=== PATIENT | male | born 1995 | race Two or more races ===

== ENCOUNTER 2016-04-04 05:47 | Emergency (ER) | payer OTHER ==
[2016-04-04 06:00] VITALS: RESP 18
--- NOTE | 2016-04-04 06:03 | EDPHY ---
H & P Stated Complaint: PAIN BEHIND LEFT BOTTOM TEETH IN BACK OF MOUTH, START 6PM HPI/ROS: HPI CHIEF COMPLAINT: Dental pain times 12 hours HISTORY OF PRESENT ILLNESS: This patient very pleasant 20-year-old male no significant medical or surgical history presents emergency room at 6 o'clock in the morning with left lower posterior dental pain. Patient tells me that the past 12 hours he developed this pain achiness on the left lower jaw line posterior aspect behind his last molar. Denies ever having pain like this before denies trouble swallowing denies fever nausea vomiting cough. He does smoke half pack per day Past Medical History: no significant medical history Past Surgical History: No significant surgical history Social History: [employer] student, from [employer], smokes tobacco half pack per day Family History: noncontributory ROS REVIEW OF SYSTEMS: A comprehensive 10 point review of systems is otherwise negative aside from elements mentioned in the history of present illness. Exam Constitutional triage nursing summary reviewed, vital signs reviewed, awake/ alert. Eyes normal conjunctivae and sclera, EOMI, PERRLA. HENT oropharynx: Normal exam, posterior pharynx is normal, he does have impacted lower wisdom teeth on both sides worse on the left and right where his pain is I do not appreciate gumline abscess I do not appreciate David's, nontender to palpation, no evidence of significant infection specifically no abscess, uvula midline, soft palate normal, no lesions normal inspection, atraumatic, moist mucus membranes, no epistaxis, neck supple/ no meningismus, no raccoon eyes. Respiratory clear to auscultation bilaterally, normal breath sounds, no respiratory distress, no wheezing. Cardiovascular rate normal, regular rhythm, no murmur, no edema, distal pulses normal. Gastrointestinal soft, non-tender, no rebound, no guarding, normal bowel sounds, no distension, no pulsatile mass. Genitourinary no CVA tenderness. Musculoskeletal no midline vertebral tenderness, full range of motion, no calf swelling, no tenderness of extremities, no meningismus, good pulses, neurovascularly intact. Skin pink, warm, & dry, no rash, skin atraumatic. Neurologic awake, alert and oriented x 3, AAOx3, moves all 4 extremities equally, motor intact, sensory intact, CN II-XII intact, normal cerebellar, normal vision, normal speech. Psychiatric normal mood/affect. Heme/Lymph/Immune no lymphadenopathy. Differential Diagnosis: includes but is not limited to in a particular, impacted wisdom tooth, apical abscess, gumline abscess, dental decay, cavity, Medical Decision Making: this patient be given Pen-VK in case there is infection underneath his tooth, ibuprofen for pain control he has an impacted wisdom to the left side that may be causing his pain. Will refer him to Dentistry. He understands if he develops any worsening pain swelling, fever, questions concerns return to the emergency room. Source: Patient - Personal History Current Tetanus/Diphtheria Vaccine: Yes - Medical/Surgical History Hx Asthma: No Hx Chronic Respiratory Disease: No Hx Diabetes: No Hx Cardiac Disease: No Hx Renal Disease: No Hx Cirrhosis: No Hx Alcoholism: No Hx HIV/AIDS: No Hx Splenectomy or Spleen Trauma: No Other PMH: DENIES - Social History Smoking Status: Current every day smoker Constitutional: Initial Vital Signs Temperature (C) 36.7 C 04/04/16 05:58 Heart Rate 69 04/04/16 05:58 Respiratory Rate 18 04/04/16 05:58 Blood Pressure 128/75 H 04/04/16 05:58 O2 Sat (%) 97 04/04/16 05:58 O2 Delivery Mode Room Air Allergies/Adverse Reactions: No Known Allergies Allergy (Unverified 04/04/16 05:58) Home Medications: Medication Instructions Recorded Ibuprofen [Motrin (*)] 800 mg PO Q6-8PRN #30 tab 04/04/16 Ibuprofen [Motrin (*)] 800 mg PO Q6-8PRN #30 tab 04/04/16 Penicillin V Potassium [Penicillin 500 mg PO BID #14 tab 04/04/16 VK] Penicillin V Potassium [Penicillin 500 mg PO BID #14 tab 04/04/16 VK] Departure - Departure Disposition: Home, Routine, Self-Care Clinical Impression: Pain, dental Condition: Good Instructions: Toothache (ED) Referrals: NONE *PRIMARY CARE P,. [Primary Care Provider] - As per Instructions [facility] [Outside] - As per Instructions [facility] [Outside] - As per Instructions Dental [facility] [Outside] - As per Instructions Dental [facility] [Outside] - As per Instructions Dental [facility] [Outside] - As per Instructions Prescriptions: Ibuprofen [Motrin (*)] 800 mg PO Q6-8PRN #30 tab Ibuprofen [Motrin (*)] 800 mg PO Q6-8PRN #30 tab Penicillin V Potassium [Penicillin VK] 500 mg PO BID #14 tab Penicillin V Potassium [Penicillin VK] 500 mg PO BID #14 tab
[2016-04-04] MEDS ORDERED: IBUPROFEN 200 MG TAB PO ONE (06:13)
[2016-04-04] MEDS ORDERED: PENICILLIN VK 500 MG TAB PO ONE (06:13)
[2016-04-04] MEDS ORDERED: PENICILLIN VK 250 MG TAB ONE (06:24)
[2016-04-04 06:33] VITALS: BP 122/74; PULSE 68; TEMP 98.2; O2SAT 96
== END 2016-04-04 06:33 | disposition home or self-care (01) ==
DX: K08.89 Other specified disorders of teeth and supporting structures (principal); F17.200 Nicotine dependence, unspecified, uncomplicated

== ENCOUNTER 2017-01-31 04:01 | Emergency (ER) | payer OTHER ==
[2017-01-31 04:06] VITALS: BP 147/72; PULSE 80; RESP 16; TEMP 97.9; O2SAT 97
[2017-01-31] MEDS ORDERED: TETRACAINE 0.5% 15 ML OPHT.BTL EACHEYE ONE (04:09)
[2017-01-31] MEDS ORDERED: PROPARACAINE 0.5% 15 ML OPHT DROP ONE (04:16)
[2017-01-31] MEDS ORDERED: FLUORESCEIN SODIUM 1 MG STRIP OP ONE ×2 (04:16→04:18)
[2017-01-31] MEDS ORDERED: PROPARACAINE 0.5% 15 ML OPHT DROP RTEYE ONE (04:18)
--- NOTE | 2017-01-31 04:26 | EDPHY ---
H & P Stated Complaint: R eye pain Time Seen by Provider: 01/31/17 04:09 HPI/ROS: HPI The patient presents with right eye irritation in right eyelid swelling which has been present for the last 1 day. He has been up studying for several hours tonight his symptoms became worse. Four days ago he had similar symptoms which resolved spontaneously. He has pain and swelling of his upper eyelid this is caused a burning sensation in his eye. He has some increased tearing though no discharge. Vision is preserved. REVIEW OF SYSTEMS Constitutional: No fever, no chills. Eyes: No discharge. ENT: No sore throat. Neurological: No headache. PMHx: Healthy Soc Hx: College student PHYSICAL General Appearance: Alert, no distress Eyes: Pupils equal and round no pallor or injection EYE EXAM Visual Acuity: noted from Nurse's notes. Pupils: equal round and reactive to light EOMI Skin: Slight erythema and edema of the upper lid margin which is tender to palpation Conjunctivae: not injected, no discharge Cornea: exam with fluoroscein shows no staining Anterior chamber:normal, no hyphema or hypopyon ENT, Mouth: Mucous membranes moist Respiratory: Breathing comfortably Neurological: A&O, moves all extremities Skin: Warm and dry, no rashes Musculoskeletal: Neck is supple non tender Extremities: symmetrical, full range of motion Psychiatric: Patient is oriented X 3, there is no agitation Source: Patient Exam Limitations: No limitations - Personal History Current Tetanus/Diphtheria Vaccine: Yes Current Tetanus Diphtheria and Acellular Pertussis (TDAP): Yes - Medical/Surgical History Hx Asthma: No Hx Chronic Respiratory Disease: No Hx Diabetes: No Hx Cardiac Disease: No Hx Renal Disease: No Hx Cirrhosis: No Hx Alcoholism: No Hx HIV/AIDS: No Hx Splenectomy or Spleen Trauma: No Other PMH: DENIES - Social History Smoking Status: Current every day smoker Constitutional: Initial Vital Signs Temperature (C) 36.6 C 01/31/17 04:04 Heart Rate 80 01/31/17 04:04 Respiratory Rate 16 01/31/17 04:04 Blood Pressure 147/72 H 01/31/17 04:04 O2 Sat (%) 97 01/31/17 04:04 O2 Delivery Mode Room Air Allergies/Adverse Reactions: No Known Allergies Allergy (Unverified 04/04/16 05:58) Medical Decision Making Differential Diagnosis: 21-year-old male presents with 1 day of painful and swollen upper eyelid associated with burning sensation of his eye. On exam, he is slightly edematous and erythematous upper lid. Differential diagnosis includes hordeolum , less likely periorbital cellulitis. Plan for treatment with warm compresses, will give him follow-up information for Ophthalmology if not improving. He can return to the emergency department if he is worse in any way. - Data Points Medications Given: Discontinued Medications Fluorescein Sodium ([id number]) 1 mg OP EDNOW ONE Stop: 01/31/17 04:19 Last Admin: 01/31/17 04:21 Dose: 1 mg Proparacaine HCl (Alcaine 0.5%) 1 drops RTEYE ONCE ONE Stop: 01/31/17 04:19 Last Admin: 01/31/17 04:20 Dose: 1 drop Departure - Departure Disposition: Home, Routine, Self-Care Clinical Impression: Hordeolum Qualifiers: Hordeolum type: externum Laterality: right Eyelid: upper Qualified Code(s): H00.011 - Hordeolum externum right upper eyelid Condition: Good Instructions: Marques (ED) Additional Instructions: Please use warm compresses several times a day to help with drainage. You can take ibuprofen 400 mg every 6 hours as needed for pain. I have given you information for the eye doctor, if you're not improving in 1-2 weeks you can call for a follow-up appointment. Should return to the emergency department for any increased redness, swelling, pain. Referrals: Seferino Bravo MD [Medical Doctor] - As per Instructions
== END 2017-01-31 04:32 | disposition home or self-care (01) ==
DX: H00.011 Hordeolum externum right upper eyelid (principal); F17.200 Nicotine dependence, unspecified, uncomplicated

== ENCOUNTER 2017-07-31 10:20 | Emergency (ER) | payer OTHER ==
--- NOTE | 2017-07-31 10:33 | EDPHY ---
H & P Stated Complaint: n/v l sided abd pain(recently upped bupropion/adderal dose/ not sleeping) Time Seen by Provider: 07/31/17 10:28 - Personal History Current Tetanus/Diphtheria Vaccine: Yes - Medical/Surgical History Hx Asthma: No Hx Chronic Respiratory Disease: No Hx Diabetes: No Hx Cardiac Disease: No Hx Renal Disease: No Hx Cirrhosis: No Hx Alcoholism: No Hx HIV/AIDS: No Hx Splenectomy or Spleen Trauma: No Other PMH: DENIES - Social History Smoking Status: Current every day smoker Constitutional: Initial Vital Signs Temperature (C) 36.6 C 07/31/17 10:24 Heart Rate 96 07/31/17 10:24 Respiratory Rate 18 07/31/17 10:24 Blood Pressure 99/67 L 07/31/17 10:24 O2 Sat (%) 95 07/31/17 10:24 O2 Delivery Mode Room Air Allergies/Adverse Reactions: No Known Allergies Allergy (Verified 07/31/17 10:22) Home Medications: Medication Instructions Recorded Adderall 10 MG (*) 07/31/17 buPROPion 07/31/17 Medical Decision Making - Diagnostics Imaging Results: Imaging Impressions Abdomen CT 07/31/17 10:41 Impression: 1. Normal CT abdomen and pelvis with contrast enhancement. 2. No CT evidence of appendicitis, abscess or bowel obstruction. Findings and recommendations discussed with Emergency Department physician, Gaurnag Crenshaw MD, at 1139 hour, 07/31/2017. Final report concurs with initial preliminary interpretation. Imaging: Discussed imaging studies w/ residence manager Radiologist ED Course/Re-evaluation: CHIEF COMPLAINT: Abdominal pain HISTORY OF PRESENT ILLNESS: This patient is a 21 year old male complaining of stomach pain, loss of appetite , and insomnia. He recently began taking Wellbutrin and Adderall on regular basis. He has taken these medications sporadically in the past and is using Wellbutrin to help with smoking cessation. Since he started taking these medicines daily, he has been unable to sleep well and stayed up for 26 hours. He is only able to eat once per day. He has vomited once and complains of generalized stomach discomfort. The patient has never had stomach pain associated with these medications in the past. Patient denies fever, chest pain , shortness of breath, diarrhea, or other associated symptoms. REVIEW OF SYSTEMS: A 10 point review of systems was performed and is negative with the exception of the elements mentioned in the history of present illness. PHYSICAL EXAM: HR, BP, O2 Sat, RR. Temp noted General Appearance: Alert, well hydrated, appropriate, and non-toxic appearing. Head: Atraumatic without scalp tenderness or obvious injury Eyes: Pupils equal, round, reactive to light and accommodation, EOMI, no trauma , no injection. Ears: Clear bilaterally, no perforation, normal landmarks Nose: Atraumatic, no rhinorrhea, clear. Throat: There is no erythema or exudates, no lesions, normal tonsils, mucus membranes moist. Neck: Supple, 2+ carotid upstroke, nontender, no lymphadenopathy. Respiratory: No retractions, no distress, no wheezes, and no accessory muscle use. Lungs are clear to auscultation bilaterally. Cardiovascular: Regular rate and rhythm, no murmurs, rubs, or gallops. Bilateral carotid, radial, dorsalis pedis, and posterior tibial pulses intact. Good capillary refill all extremities. Gastrointestinal: RLQ tenderness. Abdomen is soft, non-distended, no masses, no rebound, no guarding, no peritoneal signs. Musculoskeletal: Normal active ROM of all extremities, atraumatic. Neurological: Alert, appropriate, and interactive. The patient has normal DTRs and non-focal cranial nerves, motor, sensory, and cerebellar exam. Skin: No rashes, good turgor, no nodules on palpation. Past medical history: Denies. Past surgical history: Noncontributory. Family history: Noncontributory. Social history: Student at [employer]. Lives in [place]. Single. Does not abuse drugs, or alcohol. DIFFERENTIAL DIAGNOSIS: The differential diagnosis for the patient's abdominal pain included but was not limited to medication effect, appendicitis, cholecystitis, hernias, testicular torsion, gastritis, and urinary tract infection. MEDICAL DECISION MAKIN21 y/o male presents with several day history of insomnia, lack of appetite, and abdominal discomfort. Symptoms may be related to daily Wellbutrin and Adderall use. Patient has right lower quadrant tenderness on exam and has vomited. Patient's history is not completely clear, so I will conduct a general abdominal pain workup to rule out acute processes. Plan for CT abdomen/pelvis. Plan for labs including CBC, chemistries, liver, lipase. Plan to administer 4mg PO Zofran and 1L IV NS for symptom relief. Laboratory studies unremarkable. 11:[address] Cisneros, radiologist. CT abdomen/pelvis negative for acute processes. Laboratory and imaging studies negative for acute intraabdominal processes or systemic infection at this time. The patient's symptoms are likely due to his medications as above. 11:50 Reassessed patient. I recommended he taper his Wellbutrin discontinue Adderall. He will follow up with his primary care provider this week for further discussion of his medication regimen. Plan to discharge home in good condition. Return precautions discussed. He is comfortable with this plan. - Data Points Laboratory Results: Laboratory Results 07/31/17 10:46 07/31/17 10:46 07/31/17 07/31/17 07/31/17 10:52 10:46 10:46 WBC 6.06 10^3/uL 10^3/uL (3.80-9.50) RBC 5.89 10^6/uL 10^6/uL (4.40-6.38) Hgb 17.7 g/dL H g/dL (13.7-17.5) POC Hgb 17.7 gm/dL H gm/dL (13.7-17.5) Hct 49.2 % % (40.0-51.0) POC Hct 52 % H % (40-51) MCV 83.5 fL fL (81.5-99.8) MCH 30.1 pg pg (27.9-34.1) MCHC 36.0 g/dL g/dL (32.4-36.7) RDW 11.6 % % (11.5-15.2) Plt Count 259 10^3/uL 10^3/uL (150-400) MPV 9.1 fL fL (8.7-11.7) Neut % (Auto) 45.8 % % (39.3-74.2) Lymph % (Auto) 38.1 % % (15.0-45.0) Preston % (Auto) 13.9 % H % (4.5-13.0) Eos % (Auto) 1.7 % % (0.6-7.6) Baso % (Auto) 0.3 % % (0.3-1.7) Nucleat RBC Rel Count 0.0 % % (0.0-0.2) Absolute Neuts (auto) 2.78 10^3/uL 10^3/uL (1.70-6.50) Absolute Lymphs (auto) 2.31 10^3/uL 10^3/uL (1.00-3.00) Absolute Monos (auto) 0.84 10^3/uL H 10^3/uL (0.30-0.80) Absolute Eos (auto) 0.10 10^3/uL 10^3/uL (0.03-0.40) Absolute Basos (auto) 0.02 10^3/uL 10^3/uL (0.02-0.10) Absolute Nucleated RBC 0.00 10^3/uL 10^3/uL (0-0.01) Immature Gran % 0.2 % % (0.0-1.1) Immature Gran # 0.01 10^3/uL 10^3/uL (0.00-0.10) POC Sodium 140 mEq/L mEq/L (135-145) Sodium 140 mEq/L mEq/L (135-145) POC Potassium 3.8 mEq/L mEq/L (3.3-5.0) Potassium 4.3 mEq/L mEq/L (3.3-5.0) POC Chloride 104 mEq/L mEq/L (97-110) Chloride 105 mEq/L mEq/L (97-110) Carbon Dioxide 22 mEq/l mEq/l (22-31) Anion Gap 13 mEq/L mEq/L (8-16) POC BUN 18 mg/dL mg/dL (7-23) BUN 17 mg/dL mg/dL (7-23) Creatinine 1.0 mg/dL mg/dL (0.7-1.3) POC Creatinine 1.1 mg/dL mg/dL (0.7-1.3) Estimated GFR > 60 Glucose 95 mg/dL mg/dL (70-100) POC Glucose 99 mg/dL mg/dL (70-100) Calcium 9.7 mg/dL mg/dL (8.5-10.4) Total Bilirubin 1.1 mg/dL mg/dL (0.1-1.4) Conjugated Bilirubin 0.5 mg/dL mg/dL (0.0-0.5) Unconjugated Bilirubin 0.6 mg/dL mg/dL (0.0-1.1) AST 25 IU/L IU/L (17-59) ALT 45 IU/L IU/L (21-72) Alkaline Phosphatase 70 IU/L IU/L (38-126) Total Protein 7.8 g/dL g/dL (6.3-8.2) Albumin 4.6 g/dL g/dL (3.5-5.0) Lipase 53 IU/L IU/L (23-300) Medications Given: Discontinued Medications Sodium Chloride (Ns) 1,000 mls @ 0 mls/hr IV EDNOW ONE; Wide Open PRN Reason: Protocol Stop: 07/31/17 10:41 Last Admin: 07/31/17 10:50 Dose: 1,000 mls Ondansetron HCl (Zofran) 4 mg IVP EDNOW ONE Stop: 07/31/17 10:41 Last Admin: 07/31/17 10:50 Dose: 4 mg Point of Care Test Results: 07/31/17 10:52 POC Sodium 140 POC Potassium 3.8 POC Chloride 104 POC BUN 18 POC Creatinine 1.1 POC Glucose 99 Departure - Departure Disposition: Home, Routine, Self-Care Clinical Impression: Abdominal pain Qualifiers: Abdominal location: generalized Qualified Code(s): R10.84 - Generalized abdominal pain Condition: Good Instructions: Acute Abdominal Pain (ED) Additional Instructions: 1. I recommend tapering your Wellbutrin (take only a half dose) and discontinuing Adderall at this time. Please follow up with your primary care provider this week for furhter discussion of your medication regimen. 2. Return to the emergency department for fever, chest pain, difficulty breathing, uncontrollable vomiting, worsening abdominal pain, or other worsening of condition. Referrals: [facility] [Clinic] - As per Instructions Brandon Santana MD [Medical Doctor] - As per Instructions Stand Alone Forms: School Excuse Report Scribed for: Gaurang Crenshaw Report Scribed by: Latoya Rios Date of Report: 07/31/17 Time of Report: 10:34
[2017-07-31] MEDS ORDERED: NS 1,000 ML IV ONE (10:40)
[2017-07-31] MEDS ORDERED: ONDANSETRON 4 MG/2 ML VIAL IVP ONE (10:40)
[2017-07-31 10:57] LABS: PLATELET COUNT 259 10^3/uL (150-400)
[2017-07-31] MEDS ORDERED: IOPAMIDOL (ISOVUE-300) 100 ML BTL ONE (11:06)
[2017-07-31 12:07] VITALS: BP 110/46
== END 2017-07-31 12:07 | disposition home or self-care (01) ==
DX: R10.84 Generalized abdominal pain (principal); E86.9 Volume depletion, unspecified; F17.200 Nicotine dependence, unspecified, uncomplicated
CPT/HCPCS: 82947-QW; 96374; J2405; Q9967

== ENCOUNTER 2017-08-14 03:58 | Emergency (ER) | payer OTHER ==
[2017-08-14 04:28] VITALS: BP 124/72
--- NOTE | 2017-08-14 05:05 | CPEKG ---
Heart Rate: 74 RR Interval: 811 P-R Interval: 152 QRSD Interval: 84 QT Interval: 384 QTC Interval: 426 P [place]: 69 QRS [place]: 60 T Wave [place]: 48 EKG Severity - NORMAL ECG - EKG Impression: SINUS RHYTHM EKG Impression: ST ELEV, PROBABLE NORMAL EARLY REPOL PATTERN Electronically Signed By: Magdalena Wylie 15-Aug-2017 05:09:04
--- NOTE | 2017-08-14 05:06 | EDPHY ---
H & P Stated Complaint: fatigue weak Time Seen by Provider: 08/14/17 04:45 HPI/ROS: HPI The patient presents with lightheadedness and fatigue which has been present for about 3 weeks. The patient is a college student taking a summer course. He has also been observing Ramadan and fasting. He stopped fasting about 5 days ago because he was feeling fatigued. He says he has difficulty completing tasks including booking airplane flights or studying for his college class. He says when he goes to sit down and complete these tasks his body feels diffusely weak and he feels tired. He says sometimes he feels lightheaded when he goes from sitting to standing too quickly. He has not had any syncopal episodes or episodes of ALOC. He does not have any chest pain, palpitations, nausea, vomiting, diaphoresis. He was seen in the emergency room about 2 weeks ago for the same complaints in addition to abdominal pain and had a normal evaluation including laboratory testing. He has stopped taking his Wellbutrin and Adderall since then is not taking any medications. He is sleeping for about 4 hr a night. REVIEW OF SYSTEMS Constitutional: No fever, no chills. Eyes: No discharge. ENT: No sore throat. Cardiovascular: No chest pain, no palpitations. Respiratory: No cough, no shortness of breath. Gastrointestinal: No abdominal pain, no vomiting. Genitourinary: No hematuria. Musculoskeletal: No back pain. Skin: No rashes. Neurological: No headache. PMHx: Attention deficit hyperactivity disorder, anxiety, depression Soc Hx: [employer] student PHYSICAL General Appearance: Alert, no distress Eyes: Pupils equal and round no pallor or injection ENT, Mouth: Mucous membranes moist Respiratory: There are no retractions, lungs are clear to auscultation Cardiovascular: Regular rate and rhythm Gastrointestinal: Abdomen is soft and non-tender, no masses, bowel sounds normal Neurological: A&O, moves all extremities Skin: Warm and dry, no rashes Musculoskeletal: Neck is supple non tender Extremities: symmetrical, full range of motion Psychiatric: Patient is oriented X 3, there is no agitation Source: Patient Exam Limitations: No limitations - Personal History Current Tetanus/Diphtheria Vaccine: Yes Current Tetanus Diphtheria and Acellular Pertussis (TDAP): Yes - Medical/Surgical History Hx Asthma: No Hx Chronic Respiratory Disease: No Hx Diabetes: No Hx Cardiac Disease: No Hx Renal Disease: No Hx Cirrhosis: No Hx Alcoholism: No Hx HIV/AIDS: No Hx Splenectomy or Spleen Trauma: No Other PMH: DENIES - Social History Smoking Status: Current every day smoker Constitutional: Initial Vital Signs Temperature (C) 36.5 C 08/14/17 04:25 Heart Rate 97 08/14/17 04:25 Respiratory Rate 18 08/14/17 04:25 Blood Pressure 124/72 H 08/14/17 04:25 O2 Sat (%) 95 08/14/17 04:25 O2 Delivery Mode Room Air Allergies/Adverse Reactions: No Known Allergies Allergy (Verified 07/31/17 10:22) Home Medications: Medication Instructions Recorded Adderall 10 MG (*) 07/31/17 buPROPion 07/31/17 Medical Decision Making - Diagnostics EKG Interpretation: EKG: Complete interpretation has been separately recorded in the [employer] archive. Summary impression: Normal sinus rhythm Differential Diagnosis: This is a 21-year-old male with attention deficit hyperactivity disorder, anxiety, depression who presents with generalized fatigue and dizziness which triggered by trying to complete tasks that he needs to do. He has been maintaining a somewhat erratically sleep schedule because of his college course and Ramadan. He has not been eating regularly as well. He is off of his psychiatric medication including Adderall and Wellbutrin as he thought that these medicines were causing the symptoms. I suspect she could be mildly dehydrated though his vital signs are normal. EKG is unremarkable showing no arrhythmia. He also could be suffering from depression with some fatigue. I doubt any serious pathology. He had normal lab work including CBC and Chem panel just a few days ago which is all normal. I do not see the need to repeat this testing now. I did explain to him that I thought he could benefit from obtaining a primary care doctor given his subacute complaints and frequent ER visits. He is in agreement with this. I will provide him information for the outpatient doctor on-call. He will be discharged from the emergency department. Departure - Departure Disposition: Home, Routine, Self-Care Clinical Impression: Fatigue Qualifiers: Fatigue type: unspecified Qualified Code(s): R53.83 - Other fatigue Condition: Good Instructions: Fatigue (ED) Additional Instructions: I recommend that you get plenty of rest, drink plenty of fluids during the day and eat regularly. I would like for you to follow up with a primary care doctor who I have listed below for all of your symptoms. I also would like for you to follow up with your psychiatrist as you may need to be on a new antidepressant. Return to the emergency department if your worse in any way. Referrals: Delia Conteh DO [Doctor of Osteopathy] - As per Instructions
== END 2017-08-14 05:10 | disposition home or self-care (01) ==
DX: R53.83 Other fatigue (principal); F17.200 Nicotine dependence, unspecified, uncomplicated

== ENCOUNTER 2018-08-01 19:16 | Emergency (ER) | payer OTHER ==
[2018-08-01] MEDS ORDERED: ONDANSETRON 4 MG/2 ML VIAL IVP ONE (19:33)
--- NOTE | 2018-08-01 19:42 | EDPHY ---
General Time Seen by Provider: 08/01/18 19:19 Narrative: CLINICAL IMPRESSION: Episodic lightheadedness, nausea ASSESSMENT/PLAN: 22-year-old male presents to the emergency department with 2 days of intermittent episodic lightheadedness associated with nausea in the setting of Ramadan. Patient has been fasting for 10 days but admits that he has been having food and water in the evenings outside of fasting. He has no associated chest pain, shortness of breath, severe headache, vertigo. Labs are reassuring showing no evidence of electrolyte imbalance, renal insufficiency, metabolic disturbance or sign of severe dehydration. Patient declined IV antiemetics. He received L of fluid with improvement in his symptoms. EKG reviewed with Dr. Crenshaw. Probable early repol pattern. Patient has no chest pain or clinical symptoms to suggest pericarditis. No evidence of Brugada or WPW. Encouraged primary care follow-up, rest, warning signs return to ED sooner discussed discharge. DIFFERENTIAL DX: Dizziness including but not limited to peripheral and central causes of vertigo , orthostatic causes including dehydration, and blood loss. ED PROCEDURES: See lab and/or imaging results below ED COURSE: Lab results reviewed with patient. 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 Patient is 10 days in to adan fast. He states he is eating between 8:30 p.m. And 12:30 p.m.. He fasts from 4:30 a.m. Till 8:30 p.m.. He has not experienced these symptoms during Ramadan before. He denies abdominal pain. Yesterday he had 1 bout of diarrhea. No vomiting. No recent antibiotics or travel outside the [place] He has no complaints of pain. He has no chest pain, shortness of breath, fainting episodes, headache but states he occasionally feels dizzy. He has no reported significant past medical or cardiac history. He takes attention deficit hyperactivity disorder medications and use to be on Wellbutrin but quit this some time ago. He smokes cigarettes. PAST MEDICAL HISTORY: Attention deficit hyperactivity disorder See triage summary and nurse notes for addition applicable history Pertinent Past Surgical History: None reported Family History: Noncontributory Social History: Smoker REVIEW OF SYSTEMS: A full 10 point review of systems was negative except for those mentioned in HPI. PHYSICAL EXAM: General Appearance: Alert, oriented, appropriate, cooperative, NAD, well hydrated, non-toxic appearing, tachycardic at 102, no hypoxia. HEENT: Oropharynx clear is no erythema or exudates, no tonsillar hypertrophy or asymmetry. Dentition without abnormality Respiratory: There are no retractions, lungs are clear to auscultation. Cardiac: Regular rate and rhythm, no murmurs or gallops. Gastrointestinal: Abdomen is soft, nontender, bowel sounds normal, no masses/ hernia, no rigidity, guarding or focal peritoneal findings. Skin: Warm, dry, no rashes, no nodules on palpation. Neuro: Alert and oriented x 3, no limb ataxia, CN 2-12 grossly intact Musculoskeletal: No asymmetric calf swelling, pain or erythema. Distal neurovascular exam intact. MEDICAL DECISION MAKING: Patient was seen independently. Secondary supervising physician at time of evaluation was: Dr. Crenshaw. Diagnosis: Episodic lightheadedness, nausea . New, requires workup Summary: See Assessment and Plan for summary of ED visit Clinical lab tests: ordered / reviewed. Independent visualization of images, tracing, or specimens: Yes. Discussed patient with another provider: Dr. Crenshaw Patient Progress: Improved, stable for discharge. - History Smoking Status: Current every day smoker - Objective Vital Signs: Initial Vital Signs Temperature (C) 36.5 C 08/01/18 19:21 Heart Rate 102 H 08/01/18 19:21 Respiratory Rate 16 08/01/18 19:21 Blood Pressure 114/68 08/01/18 19:21 O2 Sat (%) 98 08/01/18 19:21 O2 Delivery Mode Room Air Allergies/Adverse Reactions: No Known Allergies Allergy (Verified 08/01/18 19:20) Home Medications: Medication Instructions Recorded Adderall 10 MG (*) 07/31/17 Laboratory Results: Laboratory Results 08/01/18 19:45 08/01/18 19:45 08/01/18 08/01/18 19:45 19:45 WBC 7.62 10^3/uL 10^3/uL (3.80-9.50) RBC 5.56 10^6/uL 10^6/uL (4.40-6.38) Hgb 16.4 g/dL g/dL (13.7-17.5) Hct 46.6 % % (40.0-51.0) MCV 83.8 fL fL (81.5-99.8) MCH 29.5 pg pg (27.9-34.1) MCHC 35.2 g/dL g/dL (32.4-36.7) RDW 11.9 % % (11.5-15.2) Plt Count 271 10^3/uL 10^3/uL (150-400) MPV 9.2 fL fL (8.7-11.7) Neut % (Auto) 56.9 % % (39.3-74.2) Lymph % (Auto) 32.0 % % (15.0-45.0) [place] % (Auto) 8.5 % % (4.5-13.0) Eos % (Auto) 1.8 % % (0.6-7.6) Baso % (Auto) 0.5 % % (0.3-1.7) Nucleat RBC Rel Count 0.0 % % (0.0-0.2) Absolute Neuts (auto) 4.33 10^3/uL 10^3/uL (1.70-6.50) Absolute Lymphs (auto) 2.44 10^3/uL 10^3/uL (1.00-3.00) Absolute Monos (auto) 0.65 10^3/uL 10^3/uL (0.30-0.80) Absolute Eos (auto) 0.14 10^3/uL 10^3/uL (0.03-0.40) Absolute Basos (auto) 0.04 10^3/uL 10^3/uL (0.02-0.10) Absolute Nucleated RBC 0.00 10^3/uL 10^3/uL (0-0.01) Immature Gran % 0.3 % % (0.0-1.1) Immature Gran # 0.02 10^3/uL 10^3/uL (0.00-0.10) Sodium 135 mEq/L mEq/L (135-145) Potassium 4.1 mEq/L mEq/L (3.5-5.2) Chloride 100 mEq/L mEq/L (97-110) Carbon Dioxide 24 mEq/l mEq/l (22-31) Anion Gap 11 mEq/L mEq/L (6-14) BUN 20 mg/dL mg/dL (7-23) Creatinine 1.1 mg/dL mg/dL (0.7-1.3) Estimated GFR > 60 Glucose 86 mg/dL mg/dL (70-100) Calcium 9.2 mg/dL mg/dL (8.5-10.4) Medications Given: Discontinued Medications Sodium Chloride (Ns) 1,000 mls @ 0 mls/hr IV ONCE ONE PRN Reason: Wide Open Stop: 08/01/18 19:51 Last Admin: 08/01/18 19:51 Dose: 1,000 mls Ondansetron HCl (Zofran) 4 mg IVP EDNOW ONE Stop: 08/01/18 19:34 Last Admin: 08/01/18 19:51 Dose: Not Given Departure - Departure Disposition: Home, Routine, Self-Care Clinical Impression: Episodic lightheadedness Condition: Good Instructions: Lightheadedness (ED) Additional Instructions: DISCHARGE INSTRUCTIONS FROM YOUR DOCTOR Thank you for visiting our emergency department today. You were treated by a physician daycare assistant today and your case was reviewed with our ED Attending physician. Please keep in mind that discharge from the emergency department does not mean that there is nothing wrong - it simply means that we have not identified an emergency condition that requires further evaluation or treatment in the hospital. You should always plan to follow up with primary care for re- evaluation of your condition in the next 2-3 days. If you have been referred to a specialist, please call as soon as possible (today or tomorrow) to schedule your follow up appointment at the appropriate time. YOUR LAB TESTS IN THE ER ARE REASSURING, NO ELECTROLYTE IMBALANCE, ANEMIA, OR SIGNS OF SEVERE DEHYDRATION. VITALS ARE STABLE. EKG SHOWS NO ARRHYTHMIA OR OTHER ABNORMALITIES. PLEASE TRY TO EAT DURING PERIODS OF NON-FASTING AND STAY WELL HYDRATED. FOLLOW UP WITH [facility] ON SATURDAY. RETURN TO ER SOONER FOR WORSENING LIGHTHEADEDNESS, DIZZINESS, FAINTING EPISODES, CHEST PAIN, FEVERS , VOMITING OR DIARRHEA OR ANY OTHER CONCERNS. People present with illnesses and injuries in different ways, and it is always possible that we have missed something. You may always return for re-evaluation if symptoms worsen or if they are not improving or if you develop new/different symptoms. Again, thank you for choosing our emergency department. We hope that you feel better. Referrals: NONE *PRIMARY CARE P,. [Primary Care Provider] - As per Instructions [facility],. [Clinic] - 1-2 days without fail
[2018-08-01] MEDS ORDERED: NS 1,000 ML IV ONE (19:50)
[2018-08-01 19:57] LABS: PLATELET COUNT 271 10^3/uL (150-400)
[2018-08-01 20:33] VITALS: BP 106/66
--- NOTE | 2018-08-01 21:04 | CPEKG ---
Test Reason : OPEN Blood Pressure : / mmHG Vent. Rate : 076 BPM Atrial Rate : 076 BPM P-R Int : 147 ms QRS Dur : 080 ms QT Int : 372 ms P-R-T Axes : 066 074 057 degrees QTc Int : [address] elev, probable normal early repol pattern Confirmed by Gaurang Crenshaw ([id number]) on 08/01/2018 9:03:42 PM Referred By: Gaurang Crenshaw Confirmed By:Gaurang Crenshaw
== END 2018-08-01 20:33 | disposition home or self-care (01) ==
DX: R42 Dizziness and giddiness (principal); R11.0 Nausea; F17.200 Nicotine dependence, unspecified, uncomplicated
CPT/HCPCS: J2405